=== PATIENT | female | born 1990 ===

== ENCOUNTER 2017-01-16 18:38 | Emergency (ER) | payer SELFPAY ==
[2017-01-16 18:50] VITALS: O2SAT 100
[2017-01-16] MEDS ORDERED: Sodium Chloride 0.9% 1,000 ML IV STA (18:54)
--- NOTE | 2017-01-16 19:21 | ED PDOC ---
HPI: Female Pain Time Seen by Provider: 01/16/17 18:55 Chief Complaint (Nursing): Female Genitourinary Chief Complaint (Provider): fever History Per: Patient (26 y/o female here with fever/chills today associated with right sided flank/back pain made worse with deep breathing. Notes minimal dysuria. Notes coughing and worsening of back pain with coughing. Denies any vomiting/diarrhea. Took tylenol prior to ED arrival.) Past Medical History Reviewed: Historical Data, Nursing Documentation, Vital Signs Vital Signs: Last Vital Signs Temp 102.1 F H 01/16/17 18:46 Pulse 134 H 01/16/17 18:46 Resp 18 01/16/17 18:46 BP 124/65 01/16/17 18:46 Pulse Ox 100 01/16/17 18:46 - Family History Family History: States: No Known Family Hx - Home Medications Home Medications: Ambulatory Orders Medication Instructions Recorded Ciprofloxacin HCl [Cipro] 500 mg PO BID #14 tablet 01/16/17 Ibuprofen [Motrin] 600 mg PO Q8 PRN #21 tab 01/16/17 Ondansetron ODT [Zofran ODT] 4 mg PO Q8 PRN #10 odt 01/16/17 - Allergies Allergies/Adverse Reactions: Allergies Allergy/AdvReac Type Severity Reaction Status Date / Time No Known Allergies Allergy Verified 01/16/17 18:46 Review of Systems ROS Statement: Except As Marked, All Systems Reviewed And Found Negative Constitutional: Positive for: Fever Musculoskeletal: Positive for: Back Pain Physical Exam - Reviewed Nursing Documentation Reviewed: Yes Vital Signs Reviewed: Yes - Physical Exam Appears: Positive for: Well, Non-toxic, No Acute Distress Head Exam: Positive for: ATRAUMATIC, NORMAL INSPECTION, NORMOCEPHALIC Skin: Positive for: Normal Color, Warm, DRY Eye Exam: Positive for: EOMI, Normal appearance, PERRL ENT: Positive for: Normal ENT Inspection Neck: Positive for: Normal, Painless ROM Cardiovascular/Chest: Positive for: Regular Rate, Rhythm Respiratory: Positive for: CNT, Normal Breath Sounds Gastrointestinal/Abdominal: Positive for: Normal Exam, Bowel Sounds, Soft Back: Positive for: Normal Inspection, R CVA Tenderness, Other ((+) tenderness noted right lower ribs; CTAB) Extremity: Positive for: Normal ROM Neurologic/Psych: Positive for: Alert, Oriented - Laboratory Results Result Diagrams: 01/16/17 19:16 01/16/17 19:16 Urine POC: Negative Urine dip results: Positive for: Leukocyte Esterase, Blood. Negative for: Nitrate, Ketones, Glucose, Bilirubin, Protein - ECG O2 Sat by Pulse Oximetry: 100 - Progress ED Course And Treament: Zofran 4 mg iv x 1 dose Motrin 600mg x 1 dose NS 1 liter wide open urinalysis appears consistent with UTI and presentation with pyelnephritis. Rocepin 1 gm iv x dose CXR: NAD Disposition - Clinical Impression Clinical Impression: Pyelonephritis - Patient ED Disposition Is Patient to be Admitted: No - Disposition Referrals: [facility] [Outside] Disposition: Transfer of Care Disposition Time: 19:39 Condition: FAIR Prescriptions: Ciprofloxacin HCl [Cipro] 500 mg PO BID #14 tablet Ibuprofen [Motrin] 600 mg PO Q8 PRN #21 tab PRN Reason: Fever >100.4 F Ondansetron ODT [Zofran ODT] 4 mg PO Q8 PRN #10 odt PRN Reason: Nausea/Vomiting Instructions: Acute Pyelonephritis (DC) Forms: [facility] ED School/Work Excuse Patient Signed Over To: Lilia Morris Handoff Comments: RE-EVAL
[2017-01-16 19:22] LABS: BASO # 0.1 K/uL (0.0-0.2); BASO % 0.5 % (0.0-2.0); HEMOGLOBIN 13.6 g/dL (12.0-16.0); LYMPH # 0.7 K/uL (1.0-4.3); LYMPH % 3.2 % (20.0-40.0); MEAN CELL VOLUME 90.4 fl (81.0-99.0); MEAN CORPUSCULAR HEMOGLOBIN 30.2 pg (27.0-31.0); MEAN CORPUSCULAR HGB CONC 33.4 g/dL (33.0-37.0); MEAN PLATELET VOLUME 10.4 fl (7.2-11.7); MONO # 1.6 K/uL (0.0-0.8); MONO % 7.9 % (0.0-10.0); NEUT # 18.3 K/uL (1.8-7.0); NEUT % 88.4 % (50.0-75.0); PLATELET COUNT 165 K/uL (130-400); RBC 4.51 Mil/uL (3.80-5.20); RED CELL DISTRIBUTION WIDTH 13.2 % (11.5-14.5); WHITE BLOOD COUNT 20.7 K/uL (4.8-10.8)
[2017-01-16 19:25] LABS: SQUAMOUS EPITHIAL 20 /hpf (0-5); URINE BACTERIA RARE (<OCC); URINE BILIRUBIN NEGATIVE (NEGATIVE); URINE BLOOD NEGATIVE (NEGATIVE); URINE CLARITY CLOUDY (Clear); URINE COLOR AMBER (YELLOW); URINE GLUCOSE (UA) NEG (Normal); URINE LEUKOCYTE ESTERASE MOD Leu/uL (Negative); URINE NITRATE NEGATIVE (NEGATIVE); URINE PROTEIN 100 mg/dL (NEGATIVE)
[2017-01-16 19:34] LABS: ALB/GLOB RATIO 1.4 (1.0-2.1); ALBUMIN 4.7 g/dL (3.5-5.0); ALT/SGPT 27 U/L (9-52); AST/SGOT 17 U/L (14-36); BLOOD UREA NITROGEN 8 mg/dl (7-17); CALCIUM 9.3 mg/dL (8.4-10.2); GFR AFRICAN-AMERICAN > 60; GFR NON-AFRICAN AMERICAN > 60
[2017-01-16] MEDS ORDERED: cefTRIAXone (Rocephin) 1 gm Inj IVPB ONE (19:37)
[2017-01-16] MEDS ORDERED: cefTRIAXone (Rocephin) 1 gm Inj ONE (19:42)
[2017-01-16] MEDS ORDERED: Potassium Chloride 20 mEq ER Tab PO STA (19:49)
[2017-01-16 19:55] LABS: BANDS 1 % (0-2); LYMPHOCYTE 3 % (20-50); MONOCYTE 3 % (0-10); NEUTROPHIL 93 % (42-75); TOTAL CELLS COUNTED 100
[2017-01-16 19:56] LABS: PLATELET ESTIMATE NORMAL (NORMAL)
[2017-01-16] MEDS ORDERED: Potassium Chloride 20 mEq ER Tab PO ONE (21:10)
[2017-01-16 21:15] VITALS: BP 122/66; PULSE 91; RESP 16; TEMP 98.7
--- NOTE | 2017-01-17 10:52 | RAD ---
HISTORY: fever/chest pain r/o pneumonia COMPARISON: No prior. TECHNIQUE: Chest PA and lateral FINDINGS: LUNGS: No focal consolidation. The interstitial markings are slightly increased and coarsened with a few scattered peribronchial cuffing changes. Rule out sequela of reactive/inflammatory airway disease or viral illness. PLEURA: No significant pleural effusion identified. No pneumothorax apparent. CARDIOVASCULAR: Normal. OSSEOUS STRUCTURES: No significant abnormalities. VISUALIZED UPPER ABDOMEN: Normal. OTHER FINDINGS: None. IMPRESSION: No focal consolidation. The interstitial markings are slightly increased and coarsened with a few scattered peribronchial cuffing changes. Rule out sequela of reactive/inflammatory airway disease or viral illness.
== END 2017-01-16 22:15 | disposition home or self-care (01) ==
LOC: H.ER 18:38
DX: N10 Acute pyelonephritis (principal)
CPT/HCPCS: 71020; 80053; 81003; 81025; 85025; 87086; 87181; 96365; 96375; 99283; J0696; J2405; J7040